=== PATIENT | male | born 1985 | race Two or more races ===

== ENCOUNTER 2021-01-19 22:41 | Emergency (ER) | payer OTHER ==
[~2021-01-19] VITALS: Ht 172.7 cm; Wt 71.0 kg
[2021-01-19 23:01] VITALS: BP 122/74
== END 2021-01-20 01:11 | disposition left against medical advice (07) ==
LOC: ER 22:41
DX: R10.9 Unspecified abdominal pain (principal); Z53.21 Procedure and treatment not carried out due to patient leaving prior to being seen by health care provider